=== PATIENT | male | born 1985 | race Caucasian/White ===

== ENCOUNTER 2017-02-15 16:00 | Inpatient (IN) | payer OTHER ==
--- NOTE | ~2017-02-15 | PN ---
Unit #: [id number] #: [id number] Patient: EMMANUEL SUNG [id number] [facility] [address] [place] [address] [id number] MR#: [id number] NAME: EMMANUEL SUNG ROOM: P211 Age: 32 Sex: M Admission Date: 02/15/2017 : 1985 Attending Physician: Ovidio Davidson M.D. Admitting Physician: Ovidio Davidson M.D. Primary Care Physician: Primary Care Physician Patricia RIOS PROGRESS NOTES DATE 02/19/2017 DISCUSSION Mr. Sung is a 32-year-old, white male with substance abuse and mood disorder who was seen today and chart was reviewed and case was discussed with the staff. He appears to be doing better though has been exhibiting some med seeking behavior and asking for stimulants for ADHD and benzodiazepines for his anxiety. Meanwhile, he has been coming to therapy groups and has been participating. MENTAL STATUS EXAM Young white male who was casually dressed with fair personal hygiene, appears to be in no acute distress or discomfort. He was awake and alert with intact orientation. His mood was anxious with congruent affect. He denies any suicidal or homicidal ideation. His insight and judgement remains significantly impaired. TREATMENT PLAN 1. We will continue him on his current treatment protocol. We will monitor his response to the medication and make further adjustments as needed. 2. We will continue to follow up. Dictated by... Jones Naqvi/yannick TD: 02/19/2017 21:36 JOB #: [id number] Unit #: [id number] #: [id number] Patient: EMMANUEL SUNG WILLJESSICA PROGRESS NOTES Page 1 of 1 X Ovidio Davidson MD PROGRESS NOTE
--- NOTE | ~2017-02-15 | PN ---
Unit #: [id number] #: [id number] Patient: EMMANUEL SUNG [id number] [facility] [address] [place] [address] [id number] I MR#: [id number] NAME: EMMANUEL SUNG ROOM: P211 Age: 32 Sex: M Admission Date: 02/15/2017 : 1985 Attending Physician: Ovidio Davidson M.D. Admitting Physician: Ovidio Davidson M.D. Primary Care Physician: Primary Care Physician Patricia RIOS PROGRESS NOTES DATE OF SERVICE: 02/17/2017 SUBJECTIVE Mr. Sung is a 32-year-old white male with substance abuse and mood disorder, who was seen today and chart was reviewed and case was discussed with the staff. He has been anxious, withdrawn, and seclusive to himself. Meanwhile, he has been cooperative with treatment recommendations and has been taking medications and tolerating them fairly well with no reported side effects. MENTAL STATUS EXAMINATION Young white male, who was casually dressed with fair personal hygiene, appears to be in no acute distress or discomfort. He was awake and alert with intact orientation. His mood was anxious with a congruent affect. He denies any suicidal or homicidal ideation. His insight and judgment remain slightly impaired. TREATMENT PLAN 1. We will continue on his current treatment protocol. We will monitor his response to medications and make further adjustments as needed. 2. We will continue to follow up. Dictated by... Jones Naqvi/maxinel TD: 02/17/2017 12:55 JOB #: [id number] [facility] PROGRESS NOTES Page 1 of 1 X Ovidio Davidson MD PROGRESS NOTE
--- NOTE | ~2017-02-15 | PA ---
Unit #: [id number] #: [id number] Patient: EMMANUEL SUNG [id number] [facility] [address] [place] [address] [id number] MR#: [id number] NAME: EMMANUEL SUNG ROOM: [facility] Age: 32 Sex: M Admission Date: 02/15/2017 : 1985 Date of Assessment: Attending Physician: Ovidio Davidson M.D. Admitting Physician: Ovidio Davidson M.D. Primary Care Physician: Primary Care Physician No PSYCHIATRIC ASSESSMENT DATE OF SERVICE 02/16/2017. IDENTIFYING DATA Mr. Sung is a 32-year-old single white male, who is a resident of [place] and was self-referred to the hospital on a voluntary basis. CHIEF COMPLAINT "Opioid use disorder." HISTORY OF PRESENT ILLNESS Mr. Sung is a 32-year-old white male, who presented to the hospital with his brother for opioid dependence and states that he is currently attending the practice [facility] for Suboxone and currently has been taking 21 mg two and a half tablets daily and reports that today he took only 8 mg and reports that he has also been using pain medication and methamphetamine, with the last use 4 days ago and reports that he had a planned detox with his physician and he is requesting medical detox to come off Suboxone. He does report depression, anxiety, and irritability, but denies any suicidal ideations, intent, or plan. SUBSTANCE ABUSE HISTORY The patient reports history of opioid and methamphetamine abuse, and currently, he reports that he had been using IV methamphetamine, with the last use 5 days ago and has been using Suboxone as well. PAST PSYCHIATRIC HISTORY The patient has had a history of 2 prior chemical dependency treatments at the [facility]. Review of the medical records indicate that currently he is not active in any treatment program, though he has been going to the [facility]. PAST MEDICAL HISTORY The patient's medical history is insignificant. ALLERGIES No known medication allergies. PERSONAL AND SOCIAL HISTORY A 32-year-old white male, who reports that he is single, unemployed, and is homeless and has poor social support system. Unit #: [id number] #: [id number] Patient: EMMANUEL SUNG MENTAL STATUS EXAMINATION Young white male, who was casually dressed with fair personal hygiene, appears to be in no acute distress or discomfort. He was awake and alert on interaction with intact orientation to time, place, and person. His mood was anxious and depressed with a congruent affect. His speech was slow and restricted in content. He denies any suicidal or homicidal ideations and also denies any auditory or visual hallucinations. His insight and judgment remain significantly impaired. DIAGNOSTIC IMPRESSION Psychiatric: Opioid dependence, moderate, in acute withdrawals; methamphetamine dependence, moderate; and opioid-induced mood disorder. Medical: None. Stressors: Moderate psychosocial stressors. TREATMENT PLAN 1. The patient has presented with a history of substance abuse and mood disorder and has been decompensating and will need inpatient hospitalization for detoxification, safety, and stabilization. We will start him on opioid detox protocol. We will closely monitor for any worsening withdrawal symptoms. 2. Supportive therapy was provided to the patient. 3. Safe, structured, and nourishing environment will be provided. ESTIMATED LENGTH OF STAY 4 to 5 days. ABILITY TO HELP SELF Limited. WILLINGNESS TO HELP SELF The patient appears to be willing to help self. STRENGTHS 1. Communicative. 2. Cooperative. PROBLEMS 1. Chronic dysphoric symptoms. 2. Chronic chemical dependency. 3. Poor social support system. DISCHARGE CRITERIA This will be contingent upon the patient's ability to go through detox without having any significant withdrawal symptoms as well as his ability to stay safe to himself, particularly after discharge from the hospital. Dictated by... Jones Naqvi/rocky TD: 02/16/2017 13:38 JOB #: [id number] Unit #: [id number] #: [id number] Patient: HAYLEY SUNGIE PSYCHIATRIC ASSESSMENT Page 1 of 1 X Ovidio Davidson MD PSYCHIATRIC ASSESSMENT
--- NOTE | ~2017-02-15 | HP ---
Unit #: [id number] #: [id number] Patient: EMMANUEL RAYO [id number] [place] [address] [id number] I MR#: [id number] NAME: EMMANUEL RAYO ROOM: P211 Age: 32 Sex: M Admission Date: 02/15/2017 : 1985 Attending Physician: Ovidio Davidson M.D. Admitting Physician: Ovidio Davidson M.D. Primary Care Physician: Primary Care Physician No HISTORY AND PHYSICAL HISTORY OF PRESENT ILLNESS The patient is a 32-year-old male who states he is admitted to detox from Suboxone. He was never a heroin user but started abusing Suboxone and now is here to detox. PAST MEDICAL HISTORY Significant for depression. PAST SURGICAL HISTORY Appendectomy. SOCIAL HISTORY Positive for smoking Suboxone and Neurontin. ALLERGIES None. FAMILY HISTORY Noncontributory. REVIEW OF SYSTEMS CONSTITUTIONAL: No fever or chills. HEENT: Denies any sore throat, ear pain or runny nose. CARDIOVASCULAR: Denies chest pain, irregular heart rhythm or palpitations. CHEST: Denies shortness of breath or cough. No hemoptysis. GASTROINTESTINAL: Denies nausea, vomiting, diarrhea or chronic constipation. ENDOCRINE: Denies history of increased thirst or urination. No recent significant weight loss or gain. GENITOURINARY: Denies dysuria, frequency, or hematuria. SKIN: Denies any rashes. HEMATOLOGIC: Denies history of increased bleeding or bruising. MUSCULOSKELETAL: Denies any hot, swollen joints. No generalized muscle pain. NEUROLOGIC: Denies problems with vision or speech. No frequent, severe headaches. No numbness, tingling or weakness in any extremities. Denies loss of bladder or bowel control. CURRENT MEDICATIONS None. Unit #: [id number] #: [id number] Patient: EMMANUEL RAYO PHYSICAL EXAMINATION GENERAL: Alert, oriented in no acute distress. VITAL SIGNS: Temperature 98, heart rate 59, respirations 16, blood pressure 113/67. HEIGHT: 5 feet 9 inches WEIGHT: 145 pounds SKIN: Warm and dry without rash. Tattoo to the right arm midline back and a scar right lower quadrant. HEENT: Normocephalic. TMs not viewed. Oral and nasal passages clear. Conjunctivae clear. PERRLA. EOMs intact. NECK: Supple without lymphadenopathy or thyromegaly. HEART: Regular rate and rhythm without murmur. LUNGS: Clear. ABDOMEN: Soft, nontender, without masses or hepatosplenomegaly. : Not done. EXTREMITIES: No evidence of cyanosis, clubbing or edema. Moves all without focal deficit. NEUROLOGICAL: Grossly within normal limits. Cranial Nerves: II: Visual turk are intact. III, IV AND : Extraocular movements are intact. Pupils are equal, round and reactive to light. V: Facial sensation is grossly normal. VII: Facial movements and expression are normal. VIII: Auditory acuity grossly intact. IX, X: Uvula is midline. Phonation is normal. XI: Patient shrugs shoulders and turns head normally. XII: Tongue protrudes in the midline. Sensory and Motor Function: Sensory and motor sensation is grossly normal. Motor: moves all extremities well. Coordination: Gait is normal. Deep Tendon Reflexes: Intact. IMPRESSION Psychiatric admission RECOMMENDATIONS Psychiatric, per psychiatrist. MEDICAL: I see no contraindications to participating in facility's activities. MEDICAL PROGNOSIS Good. Dictated by... Yessy Harris/yannick TD: 02/17/2017 01:20 JOB #: [id number] Unit #: [id number] #: [id number] Patient: EMMANUEL RAYO HISTORY AND PHYSICAL Page 1 of 1 X Cheri Salazar APR X HISTORY AND PHYSICAL
--- NOTE | ~2017-02-15 | DS ---
Unit #: [id number] #: [id number] [facility] [id number] [facility] [address] [place] [address] [id number] MR#: [id number] NAME: EMMANUEL SUNG ROOM: [facility] Age: 32 Sex: M Admission Date: 02/15/2017 : 1985 Discharge Date: 02/20/2017 Attending Physician: Ovidio Davidson M.D. Primary Care Physician: Primary Care Physician No DISCHARGE SUMMARY IDENTIFYING DATA Mr. Sung is a 32-year-old single white male who is a resident of [place] and was self-referred to the hospital on a voluntary basis with a chief complaint of "opioid use disorder." DISCHARGE DIAGNOSES Psychiatric: Opioid dependence, moderate and acute withdrawals; methamphetamine dependence, moderate; opioid-induced mood disorder. Medical: None. Stressors: Moderate psychosocial stressors. HISTORY OF PRESENT ILLNESS Please see initial psychiatric evaluation for details. PAST PSYCHIATRIC HISTORY Please see initial psychiatric evaluation for details. PAST MEDICAL HISTORY Please see initial psychiatric evaluation for details. HOSPITAL COURSE The patient was admitted to the adult chemical dependency unit at [facility] and was oriented to the hospital environment. Routine p.r.n. medications were initiated, and he was started on the opioid detox protocol and was noticed to be not investing very much in his treatment rather showing very poor insight and constantly trying to mask and minimize his presentation and stating that he does not need to be here and yet at the same time was seen to be having significant detox symptoms and was wanting his Neurontin medication need not to be increased. He was also noticed to be exhibiting significant med seeking behavior as in the midst of his detox, he would want me to start him on stimulant for his ADHD and was asking for benzodiazepines for his anxiety and yet he would state that there is nothing wrong with him and that he does not need to be here and he has not needed any detox and was wanting to go and was denying any suicidal ideations, intent, or plan. It was not clear if the patient was motivated enough for treatment and therefore, it was decided that he will be discharged home and will recommend ongoing outpatient chemical dependency treatment. DISCHARGE MEDICATIONS None. DISCHARGE CONDITION Stable. Unit #: [id number] #: [id number] Patient: EMMANUEL SUNG PROGNOSIS Guarded. Dictated by... Jones Naqvi/rocky TD: 02/20/2017 07:56 JOB #: [id number] DISCHARGE SUMMARY Page 1 of 1 X Ovidio Davidson MD DISCHARGE SUMMARY
[2017-02-16 11:34] LABS: BASOPHIL% 0.5 % (0-2.5); EOSINOPHIL# 0.2 X10e3 (0-0.7); EOSINOPHIL% 4.1 % (0.0-7.0); HEMATOCRIT 44.9 % (38.0-50.0); HEMOGLOBIN 14.9 gm/dL (13.0-16.0); LYMPHOCYTE# 3.1 X10e3 (1.0-3.5); LYMPHOCYTE% 52.1 % (17.0-45.0); MEAN CELL VOLUME 85.9 FL (83-96); MEAN CORPUSCULAR HEMOGLOBIN 28.5 PG (28-34); MEAN CORPUSCULAR HGB CONC 33.1 g/dL (30-36); MONOCYTE# 0.4 X10e3 (0-1.0); MONOCYTE% 6.8 % (3.0-12.0); NEUTROPHIL# 2.2 X10e3 (1.5-7.1); NEUTROPHIL% 36.5 % (40-75); PLATELET COUNT 236 X10e3 (140-420); RED BLOOD COUNT 5.22 X10e (3.90-5.60); RED CELL DISTRIBUTION WIDTH 13.8 % (11.0-15.5); WHITE BLOOD COUNT 5.9 X10e3 (4.0-10.5)
[2017-02-16 11:35] LABS: DIFF IND YES
[2017-02-16 11:43] LABS: BILIRUBIN,TOTAL 0.4 mg/dL (0.2-2.0); CALCIUM SERUM 9.2 mg/dL (8.4-10.2); GLOM FILT RATE Estimated 99.2 mL/min (>60); POTASSIUM 4.6 mmol/L (3.5-5.1); PROTEIN TOTAL SERUM 6.2 g/dL (6.0-8.3)
[2017-02-16 13:17] LABS: PLATELET ESTIMATE NORMAL (NORMAL); RBC NORMAL YES
[2017-02-19 09:54] LABS: URINE APPEARANCE CLEAR; URINE BILIRUBIN NEG (NEG); URINE BLOOD NEG (NEG); URINE COLOR DK YELLOW; URINE GLUCOSE NEG (NEG); URINE KETONE NEG (NEG); URINE LEUKOCYTE ESTERASE NEG (NEG); URINE NITRATE NEG (NEG); URINE PH 6.5 (5-8); URINE PROTEIN NEG (NEG); URINE SPECIFIC GRAVITY 1.017 (1.003-1.035); URINE UROBILINOGEN 0.2 MG/DL (NEG)
[2017-02-19 10:26] LABS: AMPHETAMINE POS (NEG); BARBITURATES NEG (NEG); BENZODIAZEPINES NEG (NEG); COCAINE NEG (NEG); MARIJUANA NEG (NEG); OPIATES NEG (NEG); TRICYCLIC ANTIDEPRESSANTS NEG (NEG); U METHADONE NEG (NEG)
== END 2017-02-20 10:32 | disposition home or self-care (01) | DRG 897 ==
LOC: P2S 18:16
PROVIDERS: Psychiatry & Neurology Psychiatry
PROC: HZ2ZZZZ Detoxification Services for Substance Abuse Treatment (ICD-10-PCS; principal; 2017-02-15)
DX: F11.23 Opioid dependence with withdrawal (principal); F15.20 Other stimulant dependence, uncomplicated; F11.24 Opioid dependence with opioid-induced mood disorder
CPT/HCPCS: 80053; 80307; 81003; 85025; 86592